=== PATIENT | male | born 1930 | race Caucasian/White ===

== ENCOUNTER 2016-05-05 10:48 | Inpatient (IN) | payer MEDICARE, BC ==
[2016-05-05 11:34] LABS: HEMATOCRIT 46 % (39-53); MEAN CORPUSCULAR HGB CONC 34.5 gm/dl (32.0-36.0); MEAN CORPUSCULAR VOLUME 90 fL (80-100)
[2016-05-05 11:37] LABS: ALBUMIN 3.3 gm/dl (3.4-5.0); CALCIUM 8.1 mg/dl (8.5-10.1); POTASSIUM 4.1 mMol/L (3.5-5.1)
[2016-05-05 11:47] LABS: BASOPHILS % (MANUAL) 0 % (0-3); EOSINOPHILS % (MANUAL) 1 % (0-9); LYMPHOCYTES % (MANUAL) 5 % (10-50)
[2016-05-05 11:48] LABS: NORMAL RBCS NORMAL RBCS; PLATELET MORPHOLOGY COMMENT ADEQUATE
[2016-05-05] MEDS ORDERED: FUROSEMIDE 40 MG SOL IV ONE (12:34)
[2016-05-05] MEDS ORDERED: FUROSEMIDE 40 MG SOL ONE (12:36)
[2016-05-05] MEDS ORDERED: ACETAMINOPHEN 325 MG PO PRN (12:55)
[2016-05-05] MEDS: FUROSEMIDE 40 MG SOL IV SCH ×2 (17:34→22:10)
[2016-05-05] MEDS: WARFARIN SODIUM 5 MG TAB PO SCH (18:42)
[2016-05-05] MEDS ORDERED: LEVEMIR PEN SC SCH (21:00)
[2016-05-05] MEDS ORDERED: GABAPENTIN 300 MG CAP PO SCH (21:00)
[2016-05-05] MEDS: LAMOTRIGINE 25 MG TAB PO SCH (21:20)
[2016-05-05] MEDS: METOPROLOL TARTRATE 50 MG TAB PO SCH (21:21)
[2016-05-05] MEDS: SODIUM CHLORIDE 0.9% FLUSH 10 ML SOL IV PRN (22:11)
[2016-05-06 07:47] LABS: CALCIUM 7.8 mg/dl (8.5-10.1); POTASSIUM 3.5 mMol/L (3.5-5.1)
[2016-05-06] MEDS ORDERED: WARFARIN SODIUM 5 MG TAB PO SCH (09:00)
[2016-05-06] MEDS ORDERED: GLIPIZIDE 5 MG TAB PO SCH (09:00)
[2016-05-06] MEDS ORDERED: ASPIRIN EC 81 MG PO SCH (09:00)
[2016-05-06] MEDS ORDERED: POTASSIUM CHLORIDE 10 MEQ TER PO SCH (09:00)
[2016-05-06] MEDS: FUROSEMIDE 40 MG SOL IV SCH ×2 (09:59→14:32)
[2016-05-06] MEDS: LAMOTRIGINE 25 MG TAB PO SCH (09:59)
[2016-05-06] MEDS: METOPROLOL TARTRATE 50 MG TAB PO SCH (09:59)
[2016-05-06] MEDS: SODIUM CHLORIDE 0.9% FLUSH 10 ML SOL IV PRN ×2 (09:59→14:32)
[2016-05-06 17:15] VITALS: BP 168/83; PULSE 70; RESP 20; TEMP 97.9; O2SAT 92
[2016-05-06] MEDS: WARFARIN SODIUM 5 MG TAB PO SCH (17:19)
== END 2016-05-06 17:40 | disposition home or self-care (01) | DRG 293 ==
LOC: ED 10:48 → ACUTE CARE 12:35 → UNDOADMIN 12:35 → ACUTE CARE 12:45
PROVIDERS: ADMIT Family Medicine; ATTEND Family Medicine
PROC: F01ZDFZ Gait and/or Balance Assessment using Assistive, Adaptive, Supportive or Protective Equipment (ICD-10-PCS; principal; 2016-05-06)
PROC: F01ZBZZ Bed Mobility Assessment (ICD-10-PCS; 2016-05-06)
PROC: F01ZCZZ Transfer Assessment (ICD-10-PCS; 2016-05-06)
DX: I50.9 Heart failure, unspecified (principal); I48.91 Unspecified atrial fibrillation; Z79.01 Long term (current) use of anticoagulants; N18.9 Chronic kidney disease, unspecified; R53.1 Weakness
CPT/HCPCS: 36415; 71010; 80048; 80053; 82962; 83880; 84484; 85007; 85027; 85610; 87804; 93005; 93012; 96374; 99222; 99284; J1815; J1940

== ENCOUNTER 2016-05-11 05:30 | Inpatient (IN) | payer MEDICARE, BC ==
[2016-05-11] MEDS: ALBUTEROL NEB SOL 2.5MG/3ML 1 VIAL SOL NEB ONE ×2 (05:56→06:24)
[2016-05-11] MEDS ORDERED: ALBUTEROL NEB SOL 2.5MG/3ML 1 VIAL SOL ONE (05:57)
[2016-05-11] MEDS ORDERED: FUROSEMIDE 40 MG TAB PO SCH (06:00)
[2016-05-11] MEDS ORDERED: ALBUTEROL/IPRATROPIUM 1 VIAL SOL INH ONE (06:20)
[2016-05-11] MEDS ORDERED: ALBUTEROL/IPRATROPIUM 1 VIAL SOL ONE (06:20)
[2016-05-11] MEDS ORDERED: FUROSEMIDE 40 MG TAB ONE (06:24)
[2016-05-11] MEDS ORDERED: CEFTRIAXONE 1 GM PDS 1 GM in SODIUM CHLORIDE 0.9% 100 ML 100 ML IV ONE (06:43)
[2016-05-11] MEDS ORDERED: SOLUMEDROL 125 MG/2 ML 125 MG/2 ML PDS IV ONE (06:43)
[2016-05-11] MEDS ORDERED: AZITHROMYCIN 250 MG TAB PO ONE (06:44)
[2016-05-11] MEDS ORDERED: CEFTRIAXONE 1 GM PDS ONE (06:46)
[2016-05-11] MEDS ORDERED: AZITHROMYCIN 250 MG TAB ONE (06:46)
[2016-05-11] MEDS ORDERED: SOLUMEDROL 125 MG/2 ML 125 MG/2 ML PDS ONE (06:46)
[2016-05-11 06:48] LABS: BASOPHILS % (AUTO) 1 % (0-3); EOSINOPHILS % (AUTO) 1 % (0-9); HEMATOCRIT 42 % (39-53); MEAN CORPUSCULAR HGB CONC 34.8 gm/dl (32.0-36.0); MEAN CORPUSCULAR VOLUME 88 fL (80-100); MONOCYTES % (AUTO) 10.3 % (0-12); NEUTROPHILS % (AUTO) 78.7 % (37-80)
[2016-05-11 07:01] LABS: CALCIUM 8.5 mg/dl (8.5-10.1); POTASSIUM 3.8 mMol/L (3.5-5.1)
[2016-05-11] MEDS ORDERED: FUROSEMIDE 20 MG TAB ONE (07:12)
[2016-05-11] MEDS ORDERED: ALBUTEROL NEB SOL 2.5MG/3ML 1 VIAL SOL NEB PRN (07:44)
[2016-05-11] MEDS ORDERED: ALBUTEROL/IPRATROPIUM 1 VIAL SOL INH SCH (07:45)
[2016-05-11] MEDS ORDERED: SOLUMEDROL 125 MG/2 ML 125 MG/2 ML PDS IV SCH (07:45)
[2016-05-11] MEDS ORDERED: ACETAMINOPHEN 325 MG PO PRN (08:34)
[2016-05-11] MEDS ORDERED: WARFARIN SODIUM 5 MG TAB PO SCH ×2 (09:00→18:00)
[2016-05-11] MEDS ORDERED: POTASSIUM CHLORIDE 10 MEQ TER ONE (10:43)
[2016-05-11] MEDS ORDERED: METOPROLOL TARTRATE 25 MG TAB ONE (10:43)
[2016-05-11] MEDS ORDERED: GLIPIZIDE 5 MG TAB ONE ×2 (10:44→11:01)
[2016-05-11] MEDS: FUROSEMIDE 40 MG SOL IV SCH ×2 (10:48→21:35)
[2016-05-11] MEDS: LAMOTRIGINE 25 MG TAB PO SCH ×2 (10:49→21:38)
[2016-05-11] MEDS: ALLOPURINOL 100 MG TAB PO SCH (10:49)
[2016-05-11] MEDS: POTASSIUM CHLORIDE 10 MEQ CAPSULE PO SCH (10:49)
[2016-05-11] MEDS: GLIPIZIDE PO SCH (11:20)
[2016-05-11] MEDS: METOPROLOL TARTRATE 50 MG TAB PO SCH ×2 (11:21→21:40)
[2016-05-11] MEDS: ALBUTEROL/IPRATROPIUM 1 VIAL SOL INH SCH ×2 (12:40→18:47)
[2016-05-11] MEDS: SODIUM CHLORIDE 0.9% FLUSH 10 ML SOL IV SCH ×2 (12:42→21:38)
[2016-05-11] MEDS: SOLUMEDROL 125 MG/2 ML 125 MG/2 ML PDS IV SCH ×2 (12:42→18:47)
[2016-05-11] MEDS: NOVOLOG FLEXPEN SC SCH ×2 (18:22→21:58)
[2016-05-11] MEDS: GABAPENTIN 300 MG CAP PO SCH (21:39)
[2016-05-11] MEDS: LEVEMIR PEN SC SCH (21:58)
[2016-05-11] MEDS ORDERED: NOVOLOG FLEXPEN SC ONE (23:30)
[2016-05-12] MEDS: ALBUTEROL/IPRATROPIUM 1 VIAL SOL INH SCH ×4 (00:15→17:48)
[2016-05-12] MEDS: SOLUMEDROL 125 MG/2 ML 125 MG/2 ML PDS IV SCH ×4 (00:15→17:48)
[2016-05-12] MEDS: SODIUM CHLORIDE 0.9% FLUSH 10 ML SOL IV SCH ×3 (06:09→21:07)
[2016-05-12] MEDS ORDERED: CEFTRIAXONE 1 GM (PREMIX) 1 GM/50 ML SOL IV SCH (07:45)
[2016-05-12 08:21] LABS: CALCIUM 8.6 mg/dl (8.5-10.1); POTASSIUM 3.8 mMol/L (3.5-5.1)
[2016-05-12 08:33] LABS: BASOPHILS % (AUTO) 0 % (0-3); EOSINOPHILS % (AUTO) 0 % (0-9); HEMATOCRIT 42 % (39-53); MEAN CORPUSCULAR HGB CONC 33.5 gm/dl (32.0-36.0); MEAN CORPUSCULAR VOLUME 90 fL (80-100); MONOCYTES % (AUTO) 4.5 % (0-12); NEUTROPHILS % (AUTO) 91.3 % (37-80)
[2016-05-12] MEDS ORDERED: POTASSIUM CHLORIDE 10 MEQ TER ONE (08:36)
[2016-05-12] MEDS: METOPROLOL TARTRATE 50 MG TAB PO SCH ×2 (08:41→21:08)
[2016-05-12] MEDS: ALLOPURINOL 100 MG TAB PO SCH (08:41)
[2016-05-12] MEDS: LAMOTRIGINE 25 MG TAB PO SCH ×2 (08:41→21:09)
[2016-05-12] MEDS: POTASSIUM CHLORIDE 10 MEQ CAPSULE PO SCH (08:41)
[2016-05-12] MEDS: AZITHROMYCIN 250 MG TAB PO SCH (08:42)
[2016-05-12] MEDS: NOVOLOG FLEXPEN SC SCH ×4 (08:42→21:15)
[2016-05-12] MEDS: FUROSEMIDE 40 MG SOL IV SCH ×2 (08:42→12:42)
[2016-05-12] MEDS: GLIPIZIDE PO SCH (08:43)
[2016-05-12] MEDS ORDERED: SOLUMEDROL 125 MG/2 ML 125 MG/2 ML PDS ONE (12:29)
[2016-05-12] MEDS: GUAIFENESIN 200 MG/10 ML SOL PO SCH ×2 (14:30→21:08)
[2016-05-12] MEDS: DOXYCYCLINE 100 MG TAB PO SCH (21:07)
[2016-05-12] MEDS: GABAPENTIN 300 MG CAP PO SCH (21:08)
[2016-05-12] MEDS: LEVEMIR PEN SC SCH (21:15)
[2016-05-12] MEDS ORDERED: NOVOLOG FLEXPEN SC ONE (22:33)
[2016-05-13] MEDS: SOLUMEDROL 125 MG/2 ML 125 MG/2 ML PDS IV SCH ×3 (00:22→11:59)
[2016-05-13] MEDS: SODIUM CHLORIDE 0.9% FLUSH 10 ML SOL IV SCH ×4 (00:22→20:59)
[2016-05-13] MEDS: ALBUTEROL/IPRATROPIUM 1 VIAL SOL INH SCH ×4 (00:23→18:35)
[2016-05-13] MEDS: NOVOLOG FLEXPEN SC SCH ×5 (00:37→21:02)
[2016-05-13 07:35] LABS: HEMATOCRIT 41 % (39-53); MEAN CORPUSCULAR HGB CONC 35.1 gm/dl (32.0-36.0); MEAN CORPUSCULAR VOLUME 88 fL (80-100)
[2016-05-13 08:07] LABS: LYMPHOCYTES % (MANUAL) 4 % (10-50)
[2016-05-13 08:08] LABS: BASOPHILS % (MANUAL) 0 % (0-3); EOSINOPHILS % (MANUAL) 0 % (0-9); NORMAL RBCS PRESENT
[2016-05-13] MEDS: METOPROLOL TARTRATE 50 MG TAB PO SCH ×2 (08:21→21:00)
[2016-05-13] MEDS: LAMOTRIGINE 25 MG TAB PO SCH ×2 (08:21→21:01)
[2016-05-13] MEDS: ALLOPURINOL 100 MG TAB PO SCH (08:22)
[2016-05-13] MEDS: AZITHROMYCIN 250 MG TAB PO SCH (08:22)
[2016-05-13] MEDS: GUAIFENESIN 200 MG/10 ML SOL PO SCH ×3 (08:23→20:58)
[2016-05-13] MEDS: DOXYCYCLINE 100 MG TAB PO SCH ×2 (08:28→21:03)
[2016-05-13] MEDS: FUROSEMIDE 40 MG SOL IV SCH ×2 (08:29→12:17)
[2016-05-13] MEDS: POTASSIUM CHLORIDE 10 MEQ TER PO SCH (08:41)
[2016-05-13] MEDS ORDERED: GLIPIZIDE 5 MG TAB PO SCH (09:00)
[2016-05-13] MEDS ORDERED: PHYTONADIONE 10 MG/ML SOL IM ONE (14:00)
[2016-05-13] MEDS ORDERED: NOVOLOG FLEXPEN SC STA (16:56)
[2016-05-13] MEDS ORDERED: NOVOLOG FLEXPEN SC ONE ×4 (18:30→23:46)
[2016-05-13] MEDS: GABAPENTIN 300 MG CAP PO SCH (21:02)
[2016-05-13] MEDS: LEVEMIR PEN SC SCH (21:06)
[2016-05-14] MEDS: ALBUTEROL/IPRATROPIUM 1 VIAL SOL INH SCH ×5 (01:19→23:51)
[2016-05-14] MEDS: SODIUM CHLORIDE 0.9% FLUSH 10 ML SOL IV SCH ×3 (06:51→22:13)
[2016-05-14 07:13] LABS: CALCIUM 8.5 mg/dl (8.5-10.1); POTASSIUM 3.9 mMol/L (3.5-5.1)
[2016-05-14] MEDS: NOVOLOG FLEXPEN SC SCH ×4 (08:29→22:12)
[2016-05-14] MEDS ORDERED: GLIPIZIDE 10 MG TABLET PO SCH (09:00)
[2016-05-14] MEDS ORDERED: PREDNISONE 20 MG TAB PO SCH (09:00)
[2016-05-14] MEDS: FUROSEMIDE 20 MG TAB PO SCH ×2 (09:30→13:31)
[2016-05-14] MEDS: POTASSIUM CHLORIDE 10 MEQ TER PO SCH (09:33)
[2016-05-14] MEDS: DOXYCYCLINE 100 MG TAB PO SCH ×2 (09:33→22:13)
[2016-05-14] MEDS: LAMOTRIGINE 25 MG TAB PO SCH ×2 (09:33→22:13)
[2016-05-14] MEDS: GUAIFENESIN 200 MG/10 ML SOL PO SCH ×3 (09:34→22:16)
[2016-05-14] MEDS: METOPROLOL TARTRATE 50 MG TAB PO SCH ×2 (09:34→22:16)
[2016-05-14] MEDS: ALLOPURINOL 100 MG TAB PO SCH (09:35)
[2016-05-14] MEDS: LEVEMIR PEN SC SCH (22:14)
[2016-05-14] MEDS: GABAPENTIN 300 MG CAP PO SCH (22:15)
[2016-05-15] MEDS: SODIUM CHLORIDE 0.9% FLUSH 10 ML SOL IV SCH ×2 (03:33→12:02)
[2016-05-15] MEDS: ALBUTEROL/IPRATROPIUM 1 VIAL SOL INH SCH ×3 (06:11→18:13)
[2016-05-15 07:19] LABS: BASOPHILS % (AUTO) 2 % (0-3); EOSINOPHILS % (AUTO) 0 % (0-9); HEMATOCRIT 39 % (39-53); MEAN CORPUSCULAR HGB CONC 35.1 gm/dl (32.0-36.0); MEAN CORPUSCULAR VOLUME 89 fL (80-100); MONOCYTES % (AUTO) 8.1 % (0-12); NEUTROPHILS % (AUTO) 84.5 % (37-80)
[2016-05-15 07:23] LABS: POTASSIUM 4.4 mMol/L (3.5-5.1)
[2016-05-15] MEDS: NOVOLOG FLEXPEN SC SCH ×4 (09:13→21:37)
[2016-05-15] MEDS: GLIPIZIDE 5 MG TAB PO SCH (09:16)
[2016-05-15] MEDS: POTASSIUM CHLORIDE 10 MEQ TER PO SCH (09:16)
[2016-05-15] MEDS: LAMOTRIGINE 25 MG TAB PO SCH ×2 (09:16→21:39)
[2016-05-15] MEDS: FUROSEMIDE 20 MG TAB PO SCH ×2 (09:17→12:02)
[2016-05-15] MEDS: METOPROLOL TARTRATE 50 MG TAB PO SCH ×2 (09:17→21:42)
[2016-05-15] MEDS: ALLOPURINOL 100 MG TAB PO SCH (09:17)
[2016-05-15] MEDS: GUAIFENESIN 200 MG/10 ML SOL PO SCH ×3 (09:22→21:40)
[2016-05-15] MEDS: DOXYCYCLINE 100 MG TAB PO SCH ×2 (09:22→21:39)
[2016-05-15] MEDS: LEVEMIR PEN SC SCH (21:38)
[2016-05-15] MEDS: GABAPENTIN 300 MG CAP PO SCH (21:39)
[2016-05-16] MEDS: ALBUTEROL/IPRATROPIUM 1 VIAL SOL INH SCH ×4 (00:07→18:30)
[2016-05-16] MEDS: NOVOLOG FLEXPEN SC SCH ×4 (06:45→21:24)
[2016-05-16 07:18] LABS: CALCIUM 8.4 mg/dl (8.5-10.1); POTASSIUM 4.6 mMol/L (3.5-5.1)
[2016-05-16] MEDS: METOPROLOL TARTRATE 50 MG TAB PO SCH ×2 (08:48→21:19)
[2016-05-16] MEDS: LAMOTRIGINE 25 MG TAB PO SCH ×2 (08:48→21:17)
[2016-05-16] MEDS: POTASSIUM CHLORIDE 10 MEQ TER PO SCH (08:49)
[2016-05-16] MEDS: ALLOPURINOL 100 MG TAB PO SCH (08:49)
[2016-05-16] MEDS: GUAIFENESIN 200 MG/10 ML SOL PO SCH ×3 (08:49→21:20)
[2016-05-16] MEDS: GLIPIZIDE 5 MG TAB PO SCH (08:50)
[2016-05-16] MEDS: DOXYCYCLINE 100 MG TAB PO SCH ×2 (08:50→21:17)
[2016-05-16] MEDS: FUROSEMIDE 20 MG TAB PO SCH ×2 (08:51→11:47)
[2016-05-16] MEDS: LEVEMIR PEN SC SCH (21:18)
[2016-05-16] MEDS: GABAPENTIN 300 MG CAP PO SCH (21:20)
[2016-05-17] MEDS: ALBUTEROL/IPRATROPIUM 1 VIAL SOL INH SCH ×2 (01:08→07:30)
[2016-05-17 08:25] VITALS: BP 113/60; PULSE 75; TEMP 97.5; O2SAT 93
[2016-05-17] MEDS: NOVOLOG FLEXPEN SC SCH (08:39)
[2016-05-17 08:44] VITALS: RESP 16
[2016-05-17] MEDS: DOXYCYCLINE 100 MG TAB PO SCH (08:51)
[2016-05-17] MEDS: GLIPIZIDE 5 MG TAB PO SCH (08:52)
[2016-05-17] MEDS: FUROSEMIDE 20 MG TAB PO SCH (08:52)
[2016-05-17] MEDS: POTASSIUM CHLORIDE 10 MEQ TER PO SCH (08:52)
[2016-05-17] MEDS: LAMOTRIGINE 25 MG TAB PO SCH (08:52)
[2016-05-17] MEDS: GUAIFENESIN 200 MG/10 ML SOL PO SCH (08:53)
[2016-05-17] MEDS: ALLOPURINOL 100 MG TAB PO SCH (08:53)
[2016-05-17] MEDS ORDERED: METOPROLOL TARTRATE 25 MG TAB PO SCH (09:00)
== END 2016-05-17 10:35 | DRG 292 ==
LOC: ED 05:30 → ACUTE CARE 07:38
PROVIDERS: ADMIT Family Medicine; ATTEND Family Medicine
DX: I50.9 Heart failure, unspecified (principal); J44.1 Chronic obstructive pulmonary disease with (acute) exacerbation; I48.91 Unspecified atrial fibrillation; E11.9 Type 2 diabetes mellitus without complications; Z79.01 Long term (current) use of anticoagulants; N18.9 Chronic kidney disease, unspecified; Z79.4 Long term (current) use of insulin; N18.3 Chronic kidney disease, stage 3 (moderate)
CPT/HCPCS: 36415; 71010; 80048; 82962; 83880; 84484; 85007; 85025; 85027; 85610; 93005; 93012; 94150; 94640; 94664; 94760; 96365; 96374; 99223; 99232; 99285; J0696; J1815; J1940; J2930; J3430; J7603; J7620; A6232

== ENCOUNTER 2017-03-22 08:40 | Emergency (ER) | payer MEDICARE, BC ==
[2017-03-22 08:47] VITALS: RESP 12; TEMP 97
[2017-03-22] MEDS ORDERED: ALBUTEROL/IPRATROPIUM 1 VIAL SOL INH ONE (09:20)
[2017-03-22] MEDS ORDERED: ALBUTEROL/IPRATROPIUM 1 VIAL SOL ONE (09:35)
[2017-03-22 09:44] LABS: BASOPHILS % (AUTO) 1 % (0-3); EOSINOPHILS % (AUTO) 4 % (0-9); HEMATOCRIT 42 % (39-53); MEAN CORPUSCULAR HGB CONC 35.6 gm/dl (32.0-36.0); MEAN CORPUSCULAR VOLUME 89 fL (80-100); MONOCYTES % (AUTO) 16.7 % (0-12); NEUTROPHILS % (AUTO) 59.9 % (37-80)
[2017-03-22] MEDS ORDERED: SODIUM CHLORIDE 0.9% FLUSH 10 ML SOL IV PRN (09:44)
[2017-03-22 09:54] LABS: CALCIUM 7.8 mg/dl (8.5-10.1); POTASSIUM 4.2 mMol/L (3.5-5.1)
[2017-03-22 11:25] LABS: APPEARANCE,URINE Slightly Cloudy; BILIRUBIN,URINE NEGATIVE (NEGATIVE); COLOR,URINE Yellow; GLUCOSE, URINE (UA) TRACE (NEGATIVE); KETONES,URINE NEGATIVE (NEGATIVE); LEUKOCYTE ESTERASE ,URINE TRACE (NEGATIVE); NITRATE,URINE NEGATIVE (NEGATIVE); OCCULT BLOOD,URINE 3+ (NEG-TRACE); UROBILINOGEN,URINE 0.2 (0.2-1.0 EU)
[2017-03-22 11:35] LABS: RBC,URINE 35-40 (0-3AV/HPF)
[2017-03-22 13:14] VITALS: BP 127/58; PULSE 66; O2SAT 91
== END 2017-03-22 12:08 | disposition home or self-care (01) | DRG 153 ==
LOC: ED 08:40
DX: J06.9 Acute upper respiratory infection, unspecified (principal); E11.22 Type 2 diabetes mellitus with diabetic chronic kidney disease; I48.91 Unspecified atrial fibrillation; R31.9 Hematuria, unspecified; R78.89 Finding of other specified substances, not normally found in blood; R79.82 Elevated C-reactive protein (CRP); Z85.53 Personal history of malignant neoplasm of renal pelvis; N18.9 Chronic kidney disease, unspecified; Z79.4 Long term (current) use of insulin; Z79.01 Long term (current) use of anticoagulants
CPT/HCPCS: 71045; 80048; 81001; 85025; 85610; 87077; 87088; 87186; 87430; 87804; 99284; 99285

== ENCOUNTER 2018-03-04 06:44 | Emergency (ER) | payer MEDICARE, BC ==
[2018-03-04 06:49] VITALS: RESP 20; TEMP 96.2
[2018-03-04 07:48] LABS: BASOPHILS % (AUTO) 1 % (0-3); EOSINOPHILS % (AUTO) 3 % (0-9); HEMATOCRIT 42 % (39-53); HEMOGLOBIN 13.7 gm/dl (13.5-17.7); LYMPHOCYTES % (AUTO) 13.4 % (10-50); MEAN CORPUSCULAR HGB CONC 32.9 gm/dl (32.0-36.0); MEAN CORPUSCULAR VOLUME 94 fL (80-100); MONOCYTES % (AUTO) 14.3 % (0-12)
[2018-03-04 08:38] VITALS: BP 142/68; PULSE 68; O2SAT 99
== END 2018-03-04 08:25 | disposition home or self-care (01) | DRG 696 ==
LOC: ED 06:44
DX: R31.9 Hematuria, unspecified (principal); Z79.01 Long term (current) use of anticoagulants
CPT/HCPCS: 36415; 85025; 99282; 99283

== ENCOUNTER 2018-04-15 17:29 | Inpatient (IN) | payer MEDICARE, BC ==
[2018-04-15] MEDS ORDERED: ALBUTEROL NEB SOL 2.5MG/3ML 1 VIAL SOL NEB PRN (18:33)
[2018-04-15] MEDS ORDERED: ACETAMINOPHEN 325 MG PO PRN (18:56)
[2018-04-15] MEDS ORDERED: WARFARIN SODIUM 5 MG TAB PO SCH (19:00)
[2018-04-15] MEDS ORDERED: CEFTRIAXONE 1 GM PDS ONE (19:29)
[2018-04-15] MEDS ORDERED: SODIUM CHLORIDE 0.9% 50 ML 50 ML IV ONE (19:29)
[2018-04-15] MEDS: SODIUM CHLORIDE 0.9% FLUSH 10 ML SOL IV SCH (19:35)
[2018-04-15] MEDS: SOLUMEDROL 125 MG/2 ML 125 MG/2 ML PDS IV SCH (19:35)
[2018-04-15] MEDS: CEFTRIAXONE 1 GM PDS 1 GM in SODIUM CHLORIDE 0.9% 50 ML 50 ML IV SCH (19:38)
[2018-04-15] MEDS: ALBUTEROL/IPRATROPIUM 1 VIAL SOL INH SCH (19:43)
[2018-04-15] MEDS: AZITHROMYCIN 250 MG TAB PO SCH (19:59)
[2018-04-15] MEDS: NOVOLOG 70/30 FLEXPEN SC SCH (20:00)
[2018-04-15] MEDS: NOVOLOG FLEXPEN SC SCH (20:00)
[2018-04-15] MEDS: LAMOTRIGINE 25 MG TAB PO SCH (20:06)
[2018-04-15] MEDS: GABAPENTIN 300 MG CAP PO SCH (20:07)
[2018-04-16] MEDS: SOLUMEDROL 125 MG/2 ML 125 MG/2 ML PDS IV SCH ×2 (00:49→06:36)
[2018-04-16] MEDS: ALBUTEROL/IPRATROPIUM 1 VIAL SOL INH SCH ×4 (00:50→19:13)
[2018-04-16] MEDS: SODIUM CHLORIDE 0.9% FLUSH 10 ML SOL IV SCH ×3 (00:58→18:01)
[2018-04-16] MEDS ORDERED: SODIUM CHLORIDE 0.9% 50 ML 50 ML IV ONE ×2 (06:28→15:15)
[2018-04-16] MEDS ORDERED: CEFTRIAXONE 1 GM PDS ONE ×2 (06:28→15:15)
[2018-04-16] MEDS: CEFTRIAXONE 1 GM PDS 1 GM in SODIUM CHLORIDE 0.9% 50 ML 50 ML IV SCH ×2 (06:36→18:30)
[2018-04-16 07:11] LABS: BASOPHILS % (AUTO) 1 % (0-3); EOSINOPHILS % (AUTO) 0 % (0-9); HEMATOCRIT 43 % (39-53); HEMOGLOBIN 14.4 gm/dl (13.5-17.7); LYMPHOCYTES % (AUTO) 6.1 % (10-50); MEAN CORPUSCULAR HEMOGLOBIN 31.2 pg (27.0-32.0); MEAN CORPUSCULAR HGB CONC 33.3 gm/dl (32.0-36.0); MEAN CORPUSCULAR VOLUME 94 fL (80-100); MONOCYTES % (AUTO) 2.4 % (0-12); NEUTROPHILS % (AUTO) 90.8 % (37-80)
[2018-04-16 07:16] LABS: CALCIUM 8.2 mg/dl (8.5-10.1); CARBON DIOXIDE 26.1 mEq/L (21-32); CREATININE 2.22 mg/dl (0.80-1.30); POTASSIUM 4.2 mMol/L (3.5-5.1)
[2018-04-16 07:31] LABS: INR 2.67 (0.86-1.12)
[2018-04-16] MEDS: ASPIRIN EC 81 MG PO SCH (08:39)
[2018-04-16] MEDS: LAMOTRIGINE 25 MG TAB PO SCH ×2 (08:40→20:07)
[2018-04-16] MEDS: AZITHROMYCIN 250 MG TAB PO SCH (08:41)
[2018-04-16] MEDS: METOPROLOL SUCCINATE 50 MG ER TAB PO SCH (08:41)
[2018-04-16] MEDS: ALLOPURINOL 100 MG TAB PO SCH (08:42)
[2018-04-16] MEDS: NOVOLOG FLEXPEN SC SCH ×4 (08:42→20:54)
[2018-04-16] MEDS: NOVOLOG 70/30 FLEXPEN SC SCH ×2 (08:44→17:24)
[2018-04-16] MEDS ORDERED: FUROSEMIDE 20 MG TAB PO SCH (09:00)
[2018-04-16] MEDS ORDERED: POTASSIUM CHLORIDE 10 MEQ CAPSULE PO SCH (09:00)
[2018-04-16] MEDS: POTASSIUM CHLORIDE 10 MEQ TER PO SCH (09:09)
[2018-04-16] MEDS: FUROSEMIDE 40 MG TAB PO SCH ×3 (11:50→17:25)
[2018-04-16] MEDS: WARFARIN SODIUM 5 MG TAB PO SCH ×2 (17:25→20:08)
[2018-04-16] MEDS ORDERED: NOVOLOG FLEXPEN SC ONE (18:30)
[2018-04-16] MEDS: GABAPENTIN 300 MG CAP PO SCH (20:07)
[2018-04-16] MEDS: PREDNISOLONE 1% RIGHTEYE SCH (20:08)
[2018-04-17] MEDS: ALBUTEROL/IPRATROPIUM 1 VIAL SOL INH SCH ×2 (00:15→06:44)
[2018-04-17] MEDS: SODIUM CHLORIDE 0.9% FLUSH 10 ML SOL IV SCH ×2 (01:00→07:22)
[2018-04-17] MEDS ORDERED: SODIUM CHLORIDE 0.9% 50 ML 50 ML IV ONE (06:38)
[2018-04-17] MEDS ORDERED: CEFTRIAXONE 1 GM PDS ONE (06:38)
[2018-04-17] MEDS: CEFTRIAXONE 1 GM PDS 1 GM in SODIUM CHLORIDE 0.9% 50 ML 50 ML IV SCH (06:48)
[2018-04-17 07:32] LABS: INR 4.18 (0.86-1.12)
[2018-04-17 08:15] VITALS: BP 157/84; TEMP 97.8
[2018-04-17] MEDS: NOVOLOG FLEXPEN SC SCH (08:19)
[2018-04-17] MEDS: POTASSIUM CHLORIDE 10 MEQ TER PO SCH (08:50)
[2018-04-17] MEDS: LAMOTRIGINE 25 MG TAB PO SCH (08:50)
[2018-04-17] MEDS: ASPIRIN EC 81 MG PO SCH (08:50)
[2018-04-17] MEDS: FUROSEMIDE 40 MG TAB PO SCH (08:51)
[2018-04-17] MEDS: PREDNISOLONE 1% RIGHTEYE SCH (08:51)
[2018-04-17] MEDS: ALLOPURINOL 100 MG TAB PO SCH (08:52)
[2018-04-17] MEDS: AZITHROMYCIN 250 MG TAB PO SCH (08:52)
[2018-04-17] MEDS: METOPROLOL SUCCINATE 50 MG ER TAB PO SCH (08:52)
[2018-04-17] MEDS: NOVOLOG 70/30 FLEXPEN SC SCH (08:53)
[2018-04-17 10:30] VITALS: PULSE 69; RESP 16; O2SAT 95
[2018-04-17] MEDS ORDERED: WARFARIN SODIUM 5 MG TAB PO SCH (18:00)
[2018-04-22] MEDS ORDERED: WARFARIN SODIUM 2.5 MG TAB PO SCH (18:00)
== END 2018-04-17 11:40 | disposition home or self-care (01) | DRG 190 ==
LOC: ACUTE CARE 17:29
PROVIDERS: ADMIT Family Medicine; ATTEND Family Medicine
DX: J44.1 Chronic obstructive pulmonary disease with (acute) exacerbation (principal); J18.1 Lobar pneumonia, unspecified organism; N18.4 Chronic kidney disease, stage 4 (severe); E11.9 Type 2 diabetes mellitus without complications; Z79.4 Long term (current) use of insulin; I48.91 Unspecified atrial fibrillation; R06.02 Shortness of breath; Z79.01 Long term (current) use of anticoagulants
CPT/HCPCS: 36415; 80048; 82962; 85025; 85610; 94150; 94640; 94664; J0696; J1815; J2930; J7613; A9270; A9270-GY

== ENCOUNTER 2018-06-11 03:31 | Observation (INO) | payer MEDICARE, BC ==
[2018-06-11] MEDS ORDERED: SODIUM CHLORIDE 0.9% FLUSH 10 ML SOL IV PRN (03:47)
[2018-06-11] MEDS ORDERED: SODIUM CHLORIDE 0.9% 500 ML 500 ML IV ONE (03:48)
[2018-06-11] MEDS ORDERED: ALBUTEROL/IPRATROPIUM 1 VIAL SOL INH ONE (04:06)
[2018-06-11] MEDS ORDERED: ALBUTEROL/IPRATROPIUM 1 VIAL SOL ONE (04:07)
[2018-06-11 04:10] LABS: LACTIC ACID 1.4 mMol/L (0.0-2.0)
[2018-06-11 04:11] LABS: CALCIUM 8.5 mg/dl (8.5-10.1); CARBON DIOXIDE 29.1 mEq/L (21-32); CREATININE 2.08 mg/dl (0.80-1.30); POTASSIUM 3.7 mMol/L (3.5-5.1)
[2018-06-11 04:12] LABS: HEMATOCRIT 42 % (39-53); HEMOGLOBIN 13.9 gm/dl (13.5-17.7); MEAN CORPUSCULAR HEMOGLOBIN 30.5 pg (27.0-32.0); MEAN CORPUSCULAR HGB CONC 32.9 gm/dl (32.0-36.0); MEAN CORPUSCULAR VOLUME 93 fL (80-100)
[2018-06-11 04:44] LABS: BAND NEUTROPHILS % (MANUAL) 1 %; BASOPHILS % (MANUAL) 0 % (0-3); EOSINOPHILS % (MANUAL) 0 % (0-9); LYMPHOCYTES % (MANUAL) 18 % (10-50); MONOCYTES % (MANUAL) 10 % (0-12); NEUTROPHILS % (MANUAL) 71 % (37-80)
[2018-06-11 04:45] LABS: NORMAL RBCS PRESENT
[2018-06-11] MEDS ORDERED: AUGMENTIN(FRIDGE) 400 MG/5 ML PO ONE (04:47)
[2018-06-11] MEDS ORDERED: AMOXIL/CLAVULANATE 400/5 ML PDR ONE ×2 (04:51→16:23)
[2018-06-11] MEDS: ALBUTEROL/IPRATROPIUM 1 VIAL SOL INH SCH ×4 (05:15→23:36)
[2018-06-11] MEDS ORDERED: POTASSIUM CHLORIDE 10 MEQ TER ONE (08:38)
[2018-06-11] MEDS: ASPIRIN EC 81 MG PO SCH (08:45)
[2018-06-11] MEDS: LAMOTRIGINE 25 MG TAB PO SCH ×2 (08:45→20:19)
[2018-06-11] MEDS: ALLOPURINOL 100 MG TAB PO SCH (08:47)
[2018-06-11] MEDS: GENTAMICIN 0.3% OPHTH 1 DROP SOL RIGHTEYE SCH ×5 (08:47→23:36)
[2018-06-11] MEDS ORDERED: METOPROLOL SUCCINATE 50 MG ER TAB PO SCH (09:00)
[2018-06-11] MEDS ORDERED: FUROSEMIDE 20 MG TAB PO SCH (09:00)
[2018-06-11] MEDS ORDERED: POTASSIUM CHLORIDE 10 MEQ CAPSULE PO SCH (09:00)
[2018-06-11] MEDS: NOVOLOG FLEXPEN SC SCH ×2 (09:07→17:45)
[2018-06-11] MEDS: NOVOLOG 70/30 FLEXPEN SC SCH (09:07)
[2018-06-11] MEDS: FUROSEMIDE 40 MG TAB PO SCH ×2 (11:41→17:45)
[2018-06-11] MEDS: SODIUM CHLORIDE 0.9% FLUSH 10 ML SOL IV SCH ×2 (16:23→23:37)
[2018-06-11] MEDS ORDERED: WARFARIN SODIUM 5 MG TAB PO SCH (18:00)
[2018-06-11] MEDS: AUGMENTIN(FRIDGE) 400 MG/5 ML PO SCH (20:20)
[2018-06-11] MEDS ORDERED: GABAPENTIN 300 MG CAP PO SCH (21:00)
[2018-06-11] MEDS ORDERED: PREDNISOLONE ACETATE 1% OPHTH 1 DROP SUS RIGHTEYE SCH (21:00)
[2018-06-12 04:23] VITALS: RESP 20
[2018-06-12] MEDS: GENTAMICIN 0.3% OPHTH 1 DROP SOL RIGHTEYE SCH ×2 (04:24→08:36)
[2018-06-12] MEDS: ALBUTEROL/IPRATROPIUM 1 VIAL SOL INH SCH (04:41)
[2018-06-12] MEDS ORDERED: METOPROLOL SUCCINATE 50 MG ER TAB PO SCH (07:50)
[2018-06-12 08:02] VITALS: BP 153/87; PULSE 124; TEMP 98.7; O2SAT 92
[2018-06-12] MEDS: NOVOLOG FLEXPEN SC SCH (08:34)
[2018-06-12] MEDS: NOVOLOG 70/30 FLEXPEN SC SCH (08:35)
[2018-06-12] MEDS: ASPIRIN EC 81 MG PO SCH (08:37)
[2018-06-12] MEDS: FUROSEMIDE 40 MG TAB PO SCH (08:39)
[2018-06-12] MEDS: LAMOTRIGINE 25 MG TAB PO SCH (08:39)
[2018-06-12] MEDS: AUGMENTIN(FRIDGE) 400 MG/5 ML PO SCH (08:44)
[2018-06-12] MEDS: ALLOPURINOL 100 MG TAB PO SCH (08:46)
[2018-06-12] MEDS ORDERED: POTASSIUM CHLORIDE 10 MEQ TER PO SCH (09:00)
[2018-06-12] MEDS: SODIUM CHLORIDE 0.9% FLUSH 10 ML SOL IV SCH (11:11)
[2018-06-12] MEDS ORDERED: WARFARIN SODIUM 2.5 MG TAB PO SCH (18:00)
== END 2018-06-12 10:45 | DRG 153 ==
LOC: ED 03:31 → ACUTE CARE 04:57 → UNDOADMOB 04:57 → ACUTE CARE 05:45
PROVIDERS: ADMIT Family Medicine; ATTEND Family Medicine
DX: J06.9 Acute upper respiratory infection, unspecified (principal); E86.1 Hypovolemia; E86.0 Dehydration; R06.02 Shortness of breath; E11.9 Type 2 diabetes mellitus without complications; Z79.4 Long term (current) use of insulin; Z79.01 Long term (current) use of anticoagulants; I48.91 Unspecified atrial fibrillation
CPT/HCPCS: 36415; 80048; 82962; 85007; 85027; 87040; 93005; 93012; 96365; 96366; 99219; 99285; J1815; A6219; A6232; A9270; A9270-GY